=== PATIENT | female | born 1990 ===

== ENCOUNTER → 2020-12-31 | Outpatient (CLI) | payer OTHER | END | disposition home or self-care (01) | LOC: PRENATAL 14:13 | PROVIDERS: ATTEND Obstetrics & Gynecology Maternal & Fetal Medicine | DX: O35.0XX1 Maternal care for (suspected) central nervous system malformation in fetus, fetus 1 (principal); O35.3XX1 Maternal care for (suspected) damage to fetus from viral disease in mother, fetus 1; O98.512 Other viral diseases complicating pregnancy, second trimester; Z36.89 Encounter for other specified antenatal screening; Z3A.22 22 weeks gestation of pregnancy ==

== ENCOUNTER 2021-04-23 08:45 | Inpatient (IN) | payer OTHER ==
[~2021-04-23] VITALS: Ht 170.2 cm; Wt 90.7 kg
[2021-05-06] MEDS ORDERED: PRENATAL TABLE1 EAC1 PO (09:37)
== END 2021-05-08 15:25 | disposition home or self-care (01) | DRG 807 ==
LOC: SURH 05-03 08:45 → LDR 05-06 07:23 → SURG-SUITE 05-06 16:31
PROVIDERS: ADMIT Obstetrics & Gynecology; ATTEND Obstetrics & Gynecology
PROC: 10E0XZZ Delivery of Products of Conception, External Approach (ICD-10-PCS; principal; 2021-05-06)
PROC: 0KQM0ZZ Repair Perineum Muscle, Open Approach (ICD-10-PCS; 2021-05-06)
PROC: 10907ZC Drainage of Amniotic Fluid, Therapeutic from Products of Conception, Via Natural or Artificial Opening (ICD-10-PCS; 2021-05-06)
PROC: 3E033VJ Introduction of Other Hormone into Peripheral Vein, Percutaneous Approach (ICD-10-PCS; 2021-05-06)
PROC: 4A1HXFZ Monitoring of Products of Conception, Cardiac Rhythm, External Approach (ICD-10-PCS; 2021-05-06)
DX: O70.1 Second degree perineal laceration during delivery (principal); Z37.0 Single live birth; Z3A.40 40 weeks gestation of pregnancy; Z20.822 Contact with and (suspected) exposure to COVID-19

== ENCOUNTER 2022-05-11 13:10 | Outpatient (CLI) | payer OTHER ==
[~2022-05-11 13:10] MED LIST: PRENATAL TABLE1 EAC1 PO
== END 2022-05-11 14:16 | disposition home or self-care (01) ==
LOC: PRENATAL 13:10
PROVIDERS: ATTEND Obstetrics & Gynecology Maternal & Fetal Medicine
DX: O35.0XX0 Maternal care for (suspected) central nervous system malformation in fetus, not applicable or unspecified (principal); O35.3XX0 Maternal care for (suspected) damage to fetus from viral disease in mother, not applicable or unspecified; Z14.8 Genetic carrier of other disease; O36.1999 Maternal care for other isoimmunization, unspecified trimester, other fetus; Z3A.20 20 weeks gestation of pregnancy; O34.10 Maternal care for benign tumor of corpus uteri, unspecified trimester; Z88.2 Allergy status to sulfonamides

== ENCOUNTER 2024-11-28 15:54 | Outpatient (CLI) | payer OTHER | END 2024-11-28 15:55 | disposition home or self-care (01) | LOC: PRENATAL 15:54 | PROVIDERS: ATTEND Obstetrics & Gynecology Maternal & Fetal Medicine | DX: O44.00 Complete placenta previa NOS or without hemorrhage, unspecified trimester (principal); O09.529 Supervision of elderly multigravida, unspecified trimester; O36.1999 Maternal care for other isoimmunization, unspecified trimester, other fetus; O34.10 Maternal care for benign tumor of corpus uteri, unspecified trimester; Z3A.26 26 weeks gestation of pregnancy ==

== ENCOUNTER 2025-01-09 15:29 | Outpatient (CLI) | payer OTHER | END 2025-01-09 15:31 | disposition home or self-care (01) | LOC: PRENATAL 15:29 | PROVIDERS: ATTEND Obstetrics & Gynecology Maternal & Fetal Medicine | DX: O26.849 Uterine size-date discrepancy, unspecified trimester (principal); O36.8199 Decreased fetal movements, unspecified trimester, other fetus; O09.519 Supervision of elderly primigravida, unspecified trimester; O36.1999 Maternal care for other isoimmunization, unspecified trimester, other fetus; O34.10 Maternal care for benign tumor of corpus uteri, unspecified trimester; Z3A.33 33 weeks gestation of pregnancy ==